=== PATIENT | female | born 1940 | race Caucasian/White ===

== ENCOUNTER 2019-02-11 09:44 | Day surgery (SDC) | payer OTHER ==
[2019-02-11] MEDS ORDERED: MONDOXYNE NL100 MG PO (11:21)
[2019-02-11] MEDS ORDERED: Tylenol #3 PO (11:21)
== END 2019-02-11 18:50 | disposition home or self-care (01) ==
LOC: CIR.AMB 09:44
DX: C54.1 Malignant neoplasm of endometrium (principal); N84.0 Polyp of corpus uteri

== ENCOUNTER → 2019-03-09 14:37 | Outpatient (CLI) | payer OTHER ==
[~2019-03-09 14:37] MED LIST: MONDOXYNE NL100 MG PO; Tylenol #3 PO
== END | disposition home or self-care (01) ==
LOC: LAB 14:37
DX: N20.0 Calculus of kidney (principal)

== ENCOUNTER 2019-04-05 07:50 | Outpatient (CLI) | payer OTHER | END 2019-04-05 07:55 | disposition home or self-care (01) | LOC: NUCLEAR 07:50 | DX: C54.1 Malignant neoplasm of endometrium (principal) | CPT/HCPCS: 78816; A9552 ==

== ENCOUNTER 2021-12-14 07:59 | Outpatient (CLI) | payer OTHER | END 2021-12-14 08:02 | disposition home or self-care (01) | LOC: NUCLEAR 07:59 | PROVIDERS: ATTEND Obstetrics & Gynecology Gynecologic Oncology | DX: C54.1 Malignant neoplasm of endometrium (principal) | CPT/HCPCS: 78816; A9552 ==

== ENCOUNTER 2022-10-07 08:14 | Outpatient (CLI) | payer OTHER | END 2022-10-07 08:15 | disposition home or self-care (01) | LOC: NUCLEAR 08:14 | PROVIDERS: ATTEND Internal Medicine Hematology & Oncology | DX: C54.1 Malignant neoplasm of endometrium (principal) | CPT/HCPCS: 78815; A9552 ==

== ENCOUNTER 2024-09-06 08:01 | Outpatient (CLI) | payer OTHER | END 2024-09-06 08:02 | disposition home or self-care (01) | LOC: NUCLEAR 08:01 | PROVIDERS: ATTEND Internal Medicine Hematology & Oncology | DX: C54.1 Malignant neoplasm of endometrium (principal) | CPT/HCPCS: 78816; A9552 ==

== ENCOUNTER 2025-03-30 07:21 | Outpatient (CLI) | payer OTHER | END 2025-03-30 07:22 | disposition home or self-care (01) | LOC: NUCLEAR 07:21 | PROVIDERS: ATTEND Internal Medicine Hematology & Oncology | DX: C54.1 Malignant neoplasm of endometrium (principal) | CPT/HCPCS: 78815; A9552 ==